=== PATIENT | male | born 1970 | race Caucasian/White ===

== ENCOUNTER → 2020-05-13 08:27 | Outpatient (CLI) | payer OTHER, SELFPAY ==
[2020-05-16 07:37] LABS: COVID19 Sendout Not Detected (Not Detect)
== END ==
PROVIDERS: Referring Provider Family Medicine; Visit Provider Family Medicine
DX: R05 Cough (principal); J02.9 Acute pharyngitis, unspecified
CPT/HCPCS: 87635

== ENCOUNTER → 2020-07-28 12:59 | Outpatient (CLI) | payer OTHER, SELFPAY ==
--- NOTE | 2020-07-28 | DI.RAD.S_ITS ---
PROCEDURE: XR FOOT LT MIN 3V INDICATIONS: BI GREAT TOE PAIN DJD TECHNIQUE: 3 views of the foot were acquired. COMPARISON: [facility], CR, XR FOOT RT MIN 3V, 07/28/2020, 13:09. FINDINGS: Bones: No fractures or dislocations. No suspicious bony lesions. Moderate to severe 1st MTP and diffuse interphalangeal joint narrowing with periarticular osteophyte formation. Soft tissues: No tibiotalar joint effusion. Achilles tendon appears normal. 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 Dictated by: Matthew Peralta [facility] Interpreted: Ace Nieves MD on 07/28/2020 at 16:00 Approved by: Ace Nieves M.D. on 07/28/2020 at 17:05
--- NOTE | 2020-07-28 | DI.RAD.S_ITS ---
PROCEDURE: XR FOOT RT MIN 3V INDICATIONS: BI GREAT TOE PAIN DJD TECHNIQUE: 3 views of the foot were acquired. COMPARISON: [facility], CR, XR FOOT LT MIN 3V, 07/28/2020, 13:09. FINDINGS: Bones: No fractures or dislocations. No suspicious bony lesions. Severe 1st MTP and diffuse interphalangeal joint space narrowing with periarticular osteophyte formation. Soft tissues: No tibiotalar joint effusion. Achilles tendon appears normal. 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 Dictated by: Matthew Peralta [facility] Interpreted: Ace Nieves MD on 07/28/2020 at 16:01 Approved by: Ace Nieves M.D. on 07/28/2020 at 17:06
== END ==
PROVIDERS: PCP Family Medicine; Referring Provider Family Medicine; Visit Provider Family Medicine
DX: M19.072 Primary osteoarthritis, left ankle and foot (principal); M19.071 Primary osteoarthritis, right ankle and foot
CPT/HCPCS: 73630

== ENCOUNTER → 2021-04-13 13:10 | Outpatient (ROUT) | payer OTHER, SELFPAY ==
[2021-04-13 14:24] LABS: COVID19 -Nasal RAPID Negative (Negative)
== END ==
PROVIDERS: PCP Family Medicine; Visit Provider Family Medicine
DX: Z20.822 Contact with and (suspected) exposure to COVID-19 (principal)
CPT/HCPCS: 87635

== ENCOUNTER → 2022-04-25 16:23 | Outpatient (CLI) | payer OTHER, SELFPAY ==
--- NOTE | 2022-04-25 | DI.RAD.S_ITS ---
PROCEDURE: XR EYE FOREIGN BODY RT INDICATIONS: PRE MRI SCREENING TECHNIQUE: A single view of the orbits was acquired. COMPARISON: None. FINDINGS: Soft tissues: No metallic foreign bodies are visualized around the orbits. Bones: Bony structures appear unremarkable. Visualized sinuses appear clear. Large rounded opacity in the left maxillary sinus IMPRESSION: No radiopaque foreign bodies. Cleared for MRI. Left maxillary probable retention cyst Approved by: Sunny Reyes M.D. on 04/25/2022 at 16:27
--- NOTE | 2022-04-25 16:28 | DI.MRI.S_ITS ---
PROCEDURE: MR PELIS WO/W CON INDICATIONS: rising PSA TECHNIQUE: Coronal HASTE, axial T1 FSE with fat saturation, 3-plane nonbreath-hold T2 FSE. After the administration of contrast, dynamic axial, delayed axial and coronal VIBE or 2-D FLASH with fat saturation through the pelvis. Optional diffusion weighted imaging and ADC may be performed. COMPARISON: None. FINDINGS: Image quality: Diffusion weighted and dynamic contrast enhanced images are diagnostic. Prostate: 3.8 x 3.3 x 5 cm, for a total volume of 33 cc. Transitional zone heterogenous nodules are present, either well encapsulated or mostly encapsulated, compatible with PI-RADS 1 or 2 likely BPH nodules. Mildly T2 hypointense heterogenous striated appearance of the peripheral zone is commonly seen with current or prior prostatitis, PI-RADS 2. These findings can obscure small cancers. Lesion 1: 10/14 in the left posteromedial peripheral zone at the base measuring 1.1 x 1.1 cm. There is early contrast enhancement. Diffusion score is 3. T2 score is 3. PI-RADS 4. Genitourinary system: Thick-walled urinary bladder, nonspecific and difficult to evaluate in the setting of underdistention. No hydronephrosis. Bowel and peritoneum: No pathologic ascites or bowel obstruction. Nodes and vessels: No abdominal aortic aneurysm or pathologic adenopathy. Prominent, non-specific lymph nodes are present that are not enlarged by size criteria. Soft tissues: No inguinal hernias. Bones: No suspicious osseous lesion. IMPRESSION: PI-RADS 4 lesion in the left posteromedial peripheral zone base. Suspected sequelae of prostatitis and BPH elsewhere. Dictated by: Zach Montanez M.D. on 04/26/2022 at 8:49 Approved by: Zach Montanez M.D. on 04/26/2022 at 8:57
== END ==
PROVIDERS: PCP Family Medicine; Referring Provider Specialist; Visit Provider Specialist
DX: N40.1 Benign prostatic hyperplasia with lower urinary tract symptoms (principal); R97.20 Elevated prostate specific antigen [PSA]; N13.8 Other obstructive and reflux uropathy; N42.9 Disorder of prostate, unspecified; Z13.5 Encounter for screening for eye and ear disorders
CPT/HCPCS: 70030; 72197; A9579

== ENCOUNTER → 2023-01-16 18:18 | Outpatient (ROUT) | payer OTHER, SELFPAY ==
[2023-01-18 23:08] LABS: PSA Free % 5.1 % (.); PSA, Total 5.5 ng/mL (0.0-4.0)
== END ==
PROVIDERS: PCP Family Medicine; Visit Provider Specialist
DX: R97.20 Elevated prostate specific antigen [PSA] (principal)
CPT/HCPCS: 84153; 84154

== ENCOUNTER → 2023-05-20 14:23 | Outpatient (ROUT) | payer OTHER, SELFPAY ==
[2023-05-20 15:11] LABS: Prostate Specific Antigen 5.24 ng/mL (0.10-4.00)
== END ==
PROVIDERS: PCP Family Medicine; Visit Provider Family Medicine
DX: N40.1 Benign prostatic hyperplasia with lower urinary tract symptoms (principal)
CPT/HCPCS: 84153

== ENCOUNTER → 2023-07-02 11:26 | Outpatient (CLI) | payer OTHER, SELFPAY ==
--- NOTE | 2023-07-02 11:27 | DI.MRI.S_ITS ---
PROCEDURE: MR PELVIC PROSTATE PROTOCOL INDICATIONS: Elevated PSA TECHNIQUE: Coronal HASTE, axial T1 FSE with fat saturation, 3-plane nonbreath-hold T2 FSE. After the administration of contrast, dynamic axial, delayed axial and coronal VIBE or 2-D FLASH with fat saturation through the pelvis. Diffusion weighted imaging and ADC was performed. COMPARISON: [facility], MR, MR PELVIS WO/W CON, 04/25/2022, 16:51. FINDINGS: Image quality: Diffusion weighted and dynamic contrast enhanced images are diagnostic. Prostate: 4.5 x 3.1 x 3.7 centimeters. Overall prostate volume is 27 cc. Transitional zone heterogenous nodules are present, either well encapsulated or mostly encapsulated, compatible with PI-RADS 1 or 2 likely BPH nodules. Mildly T2 hypointense heterogenous striated appearance of the peripheral zone is commonly seen with current or prior prostatitis, PI-RADS 2. In the superior portion of the posteromedial peripheral zone, there is again seen a T2 hypointense lesion measuring about 1.1 x 0.9 by 0.9 centimeters (6/15, 4/12). T2 score 4. DWI score 3. DCE positive (04/20). PI-RADS 4. This is not significantly changed from prior. Seminal vesicles are clear. No definite extracapsular disease. Genitourinary system: Trabeculated bladder likely sequelae of chronic obstruction. Bowel and peritoneum: No pathologic ascites or drainable abscess. No bowel obstruction in the lower abdomen. There are colonic diverticula. Nodes and vessels: There are indeterminate small lymph nodes, none enlarged by size criteria. Soft tissues: Unremarkable Bones: There are degenerative changes, without acute or suspicious finding. IMPRESSION: Similar PI-RADS 4 lesion in superior portion of the left posteromedial peripheral zone. If needed for further evaluation, PSMA PET could also be ordered. Dictated by: Zach Montanez M.D. on 07/02/2023 at 13:04 Approved by: Zach Montanez M.D. on 07/02/2023 at 13:12
== END ==
PROVIDERS: PCP Family Medicine; Referring Provider Specialist; Visit Provider Specialist
DX: N42.9 Disorder of prostate, unspecified (principal); R97.20 Elevated prostate specific antigen [PSA]
CPT/HCPCS: 72197; A9579

== ENCOUNTER → 2023-08-12 11:20 | Outpatient (ROUT) | payer OTHER, SELFPAY ==
[2023-08-14 13:53] LABS: PSA, Total 5.5 ng/mL (0.0-4.0)
== END ==
PROVIDERS: PCP Family Medicine; Visit Provider Family Medicine
DX: R97.20 Elevated prostate specific antigen [PSA] (principal)
CPT/HCPCS: 84153; 84154

== ENCOUNTER → 2023-09-25 14:50 | Outpatient (ROUT) | payer OTHER, SELFPAY | PROVIDERS: PCP Family Medicine; Visit Provider Family Medicine | DX: Z13.88 Encounter for screening for disorder due to exposure to contaminants (principal) | CPT/HCPCS: 83655 ==

== ENCOUNTER → 2024-02-10 13:39 | Outpatient (ROUT) | payer OTHER, SELFPAY ==
[2024-02-10 13:47] LABS: Add Manual Diff / Slide Review NO; Basophils Absolute Auto 0 /uL (0-100); Basophils Percent Auto 0.6 % (0-2); Eosinophils Absolute Auto 200 /uL (0-450); Eosinophils Percent Auto 2.6 % (2-4); Hematocrit 41.4 % (41-53); Hemoglobin 13.9 g/dL (13.5-17.5); Lymphocytes Absolute Auto 1400 /uL (1100-4500); Lymphocytes Percent Auto 21.8 % (25-40); Mean Corpuscular HGB Conc 33.7 % (30-36); Mean Corpuscular Hemoglobin 29.3 PG (26-34); Mean Corpuscular Volume 86.9 fL (80-100); Monocytes Absolute Auto 600 /uL (0-900); Monocytes Percent Auto 8.4 % (3-14); Neutrophils Absolute Auto 4400 /uL (1500-7000); Neutrophils Percent Auto 66.6 % (50-75); Platelet Count 231 X10^3/uL (150-400); Red Blood Cell Count 4.76 X10^6/uL (4.5-5.9); Red Cell Distribution Width 14.4 % (11.6-14.8); White Blood Cell Count 6.6 X10^3/uL (4.5-11.0)
[2024-02-10 14:01] LABS: BUN Creatinine Ratio 21.3 (6-22); Blood Urea Nitrogen 20 mg/dL (9-20); Calcium 8.8 mg/dL (8.4-10.2); Carbon Dioxide 29 mmol/L (22-32); Chloride 108 mmol/L (98-107); Estimated Glomerular Filt Rate > 60 mL/min (>60); Glucose 70 mg/dL (70-100); HEMOLYSIS < 15 (0-50); Potassium 4.8 mmol/L (3.4-5.1); Sodium 140 mmol/L (137-145)
== END ==
PROVIDERS: PCP Family Medicine; Visit Provider Family Medicine
DX: C61 Malignant neoplasm of prostate (principal)
CPT/HCPCS: 80048; 85025

== ENCOUNTER → 2025-05-26 18:29 | Outpatient (ROUT) | payer OTHER, SELFPAY ==
[2025-05-26 19:31] LABS: Prostate Specific Antigen < 0.064 ng/mL (0.10-4.00)
== END ==
PROVIDERS: PCP Family Medicine; Visit Provider Family Medicine
DX: C61 Malignant neoplasm of prostate (principal)
CPT/HCPCS: 84153